=== PATIENT | female | born 1975 | race Two or more races ===

== ENCOUNTER 2016-10-08 05:31 | Emergency (ER) | payer SELFPAY ==
[~2016-10-08] VITALS: Ht 152.4 cm; Wt 68.0 kg
[~2016-10-08 05:31] MED LIST: NKM
[2016-10-08 05:43] VITALS: BP 124/84
[2016-10-08] MEDS ORDERED: LORazepam Inj 2mg/ml 1ml IV ONE (05:45)
--- NOTE | 2016-10-08 05:58 | Emergency Room Report ---
History of Present Illness General Chief Complaint: Chest Pain Source: Patient Present Illness HPI Is a 41-year-old female with no past medical history. She presents with chief complaint of chest pain. Onset was acute. She was at a [employer] party today and had [address] home, as she was getting out of the car she developed sharp left-sided chest pain. No radiation. It did not get better after several hours she called 911. Onset was around midnight. Pain is sharp. 9/10. EMS gave her aspirin and nitroglycerin with minimal relief. No shortness of breath. No fever or chills. No radiation. No diaphoresis. No exertional component. Allergies: Coded Allergies: No Known Allergies (Unverified , 10/08/16) Patient History Past Medical History: none, see triage record, old chart reviewed Past Surgical History: none Pertinent Family History: none Social History: Reports: alcohol use Last Menstrual Period: 3 weeks ago Now: No Immunizations: other Reviewed Nursing Documentation: PMH: Agreed, PSxH: Agreed Nursing Documentation-PMH Past Medical History: No Stated History Review of Systems Eye: Denies: blurred vision, eye pain ENT: Denies: ear pain, nose congestion, throat swelling Respiratory: Denies: cough, shortness of breath Cardiovascular: Reports: chest pain, Denies: palpitations Gastrointestinal: Denies: abdominal pain, diarrhea, nausea, vomiting Musculoskeletal: Denies: back pain, joint pain Skin: Denies: rash Neurological: Denies: headache, numbness Endocrine: Denies: increased thirst, increased urine Hematologic/Lymphatic: Denies: easy bruising All Other Systems: negative except mentioned in HPI Physical Exam Vital Signs Date Time Temp Pulse Resp B/P Pulse Ox O2 Delivery O2 Flow Rate FiO2 10/08/16 05:22 98.1 130 18 139/83 99 Room Air vitals tachycardia [id number] EP Interpretation: reviewed, normal General Appearance: well appearing, no apparent distress, alert Head: normocephalic, atraumatic Eyes: bilateral eye EOMI, bilateral eye PERRL ENT: hearing grossly normal, normal pharynx Neck: full range of motion, supple, no meningismus Respiratory: chest non-tender, lungs clear, normal breath sounds Cardiovascular #1: regular rate, rhythm, no murmur Gastrointestinal: normal bowel sounds, non tender, no mass, no organomegaly, no bruit, non-distended Musculoskeletal: back normal, gait/station normal, normal range of motion Psychiatric: anxious Skin: warm/dry Medical Decision Making Diagnostic Impression: Primary Impression: Chest pain Qualified Codes: R07.9 - Chest pain, unspecified Additional Impression: Alcohol abuse ER Course Patient presents with atypical chest pain. No evidence of ACS, PE, dissection. Troponin negative. EKG is unremarkable. D-dimer is normal. Her symptom been ongoing for almost 7 hours now. She said she only drank 3 beers for suspect more. When she sleeping her heart rate is in the 100. When she wakes up in the 120. Eyes any alcohol abuse. She felt better now. We'll discharge home. EKG Diagnostic Results Rate: normal, tachycardiac Rhythm: NSR ST Segments: no acute changes Rhythm Strip Diag. Results EP Interpretation: yes Rate: 95 Rhythm: NSR, no PVC's, no ectopy Chest X-Ray Diagnostic Results EP Interpretation: Yes Findings: no consolidation, no effusion, no pneumothorax, no acute cardiopulmonary disease Number of Views: 1 Last Vital Signs Date Time Temp Pulse Resp B/P Pulse Ox O2 Delivery O2 Flow Rate FiO2 10/08/16 05:44 104 18 Room Air 10/08/16 05:43 99.0 124/84 100 Status: improved Disposition: HOME, SELF-CARE Condition: Stable Patient Instructions: Nonspecific Chest Pain Additional Instructions: Followup with your DrInessa in 2-3 days. Return if symptom worsen. ERMELINDA VILLA M.D. Oct 08, 2016 05:58
[2016-10-08 06:25] LABS: BASOPHILS % (AUTO) 0.8 % (0.0-2.0); EOSINOPHILS % (AUTO) 0.5 % (0.0-3.0); LYMPHOCYTES % (AUTO) 14.9 % (20.0-45.0); MEAN CORPUSCULAR HEMOGLOBIN 28.4 PG (27.0-31.0); MEAN CORPUSCULAR VOLUME 86 FL (80-99); MONOCYTES % (AUTO) 7.7 % (1.0-10.0); NEUTROPHILS % (AUTO) 76.1 % (45.0-75.0); PLATELET COUNT 296 K/UL (150-450); RED BLOOD COUNT 4.43 M/UL (4.20-5.40); RED CELL DISTRIBUTION WIDTH 12.3 % (11.6-14.8); WHITE BLOOD COUNT 12.4 K/UL (4.8-10.8)
[2016-10-08 06:46] LABS: TROPONIN I < 0.30 ng/mL (<=0.30)
[2016-10-08 06:47] LABS: ALANINE AMINOTRANSFERASE 111 U/L (3-33); ALBUMIN/GLOBULIN RATIO 1.7 (1.0-2.7); ANION GAP 18 (5-15); ASPARTATE AMINO TRANSFERASE 84 U/L (5-40); CALCIUM 9.6 mg/dL (8.6-10.2); CARBON DIOXIDE 23 mEQ/L (20-30); CHLORIDE 97 mEQ/L (98-107); CREATININE 0.6 mg/dL (0.5-0.9); GLOMERULAR FILTRATION RATE > 60 mL/min (>60); HEMOLYSIS 2; POTASSIUM 4.2 mEQ/L (3.4-4.9); SODIUM 138 mEQ/L (135-145); TOTAL PROTEIN 7.6 g/dL (6.6-8.7)
[2016-10-08 06:49] LABS: CKMB < 1.5 ng/mL (< 3.8)
[2016-10-08 07:10] VITALS: BP 107/64
[2016-10-08 07:11] VITALS: BP 107/64
--- NOTE | 2016-10-08 11:55 | Diagnostic Imaging Report ---
Indication: CP Technique: One view of the chest Comparison: none Findings: Lungs and pleural spaces are clear. Heart size is normal. Impression: No acute process
--- NOTE | 2016-10-09 11:26 | Cardiology Report ---
APPROVED REPORT EKG Measurement Heart [id number] NC [id number] Sinus tachycardia Otherwise normal ECG
== END 2016-10-08 07:30 | disposition home or self-care (01) ==
LOC: EDBD 05:31 → EMR 06:00
DX: R07.9 Chest pain, unspecified (principal); F10.10 Alcohol abuse, uncomplicated; R00.0 Tachycardia, unspecified
CPT/HCPCS: 36415; 71010; 80053; 82550; 82553; 84484; 85025; 85379; 93005; 96360; 96374